=== PATIENT | female | born 1990 | race Two or more races ===

== ENCOUNTER 2017-04-18 19:24 | Emergency (ER) | payer MEDICAID ==
[~2017-04-18] VITALS: Ht 162.6 cm; Wt 59.0 kg
--- NOTE | 2017-04-18 19:34 | NUR ---
CALLED NO ONE IN [facility]
[2017-04-18 19:45] VITALS: BP 115/83
[2017-04-18] MEDS ORDERED: TDAP [DIPH/PERTUSSIS/TET] 0.5 ML VIAL IM ONE ×2 (22:49→23:00)
--- NOTE | 2017-04-18 23:04 | NUR ---
STERI STRIPS APPLIED AND AREA COVERED WITH KERLEX.
== END 2017-04-18 23:09 | disposition home or self-care (01) ==
LOC: ER 19:33 → EDSEX 19:33 → ER 23:09
DX: S61.412A Laceration without foreign body of left hand, initial encounter (principal); S60.222A Contusion of left hand, initial encounter; Z23 Encounter for immunization; W23.1XXA Caught, crushed, jammed, or pinched between stationary objects, initial encounter; Y93.89 Activity, other specified; Y92.89 Other specified places as the place of occurrence of the external cause; Y99.8 Other external cause status
CPT/HCPCS: 73130; 90471; 90715; 99284; A4606; Z7610